=== PATIENT | female | born 1990 | race Caucasian/White ===

== ENCOUNTER 2022-12-19 07:41 | Emergency (ER) | payer OTHER ==
[2022-12-19] MEDS ORDERED: Prochlorperazine 10 MG/2 ML VIAL ONE (07:58)
[2022-12-19] MEDS ORDERED: diphenhydrAMINE 50 MG/ML VIAL ONE (08:02)
[2022-12-19] MEDS ORDERED: Acetaminophen 500 MG TAB ONE (08:02)
[2022-12-19 08:04] LABS: #Basophils 0.1 thou/uL (0.0-0.2); #Eosinphils 0.3 thou/uL (0.0-0.7); #Monocytes 0.8 thou/uL (0.11-0.59); %Basophils 1.2 % (0.0-1.0); %Eosinophils 3.9 % (0.0-10.0); %Lymphocytes 29.8 % (21.0-51.0); %Monocytes 11.2 % (0.0-10.0); %Neutrophils 53.5 % (42.0-75.0); Hematocrit 44.1 % (36.0-47.0); Hemoglobin 15.4 g/dL (12.0-16.0); Mean Corpuscular HGB CONC 34.9 g/dL (32.0-36.0); Mean Corpuscular Hemoglobin 31.4 pg (27.0-31.0); Mean Platelet Volume 9.5 fL (7.4-10.4); Platelet Count 329 10x3/uL (130-400); RBC Distribution Width 11.8 % (11.5-14.5); White Blood Cell (WBC) Count 7.5 10x3/uL (4.8-10.8)
[2022-12-19 08:28] LABS: Prothrombin Time 75.5 sec (12.0-14.7)
[2022-12-19 08:31] LABS: INR-International Normal Ratio 8.7
[2022-12-19 08:35] LABS: ALT (SGPT) 32 U/L (8-55); AST (SGOT) 26 U/L (5-34); Albumin 4.3 g/dL (3.5-5.0); Alkaline Phosphatase 82 U/L (40-110); Anion Gap 14 mmol/L (10-20); BUN (Urea Nitrogen) 16 mg/dL (7.0-18.7); Bilirubin, Total 0.3 mg/dL (0.2-1.2); Calc. Creatinine Clearance 0 mL/min (70-130); Calcium 9.5 mg/dL (7.8-10.44); Carbon Dioxide 23 mmol/L (22-29); Chloride 105 mmol/L (98-107); Estimated GFR 77; Globulin 3.4 g/dL (2.4-3.5); Glucose 119 mg/dL (70-105); Potassium 4.1 mmol/L (3.5-5.1); Protein, Total 7.7 g/dL (6.0-8.3); Sodium 138 mmol/L (136-145)
[2022-12-19 08:53] LABS: PTT Greater than 250.0 sec (22.9-36.1)
[2022-12-19 09:49] LABS: Prothrombin Time 13.2 sec (12.0-14.7)
[2022-12-19 09:50] LABS: PTT 25.1 sec (22.9-36.1)
== END 2022-12-19 10:30 | disposition home or self-care (01) ==
LOC: ERS 07:41
DX: R51.9 Headache, unspecified (principal)
CPT/HCPCS: 36415; 36416; 70450; 71045; 80053; 84484; 85025; 85610; 85730; 93005; 94760; 96374; 96375; J0780; J1200